=== PATIENT | male | born 1970 | race Caucasian/White ===

== ENCOUNTER 2024-01-06 13:18 | Outpatient (REF) | payer OTHER, MEDICAID, SELFPAY | END 2024-01-06 13:19 | disposition home or self-care (01) | LOC: HO.LNP 13:18 | PROVIDERS: Visit Provider Otolaryngology | DX: H92.10 Otorrhea, unspecified ear (principal) | CPT/HCPCS: 87070; 87077; 87102; 87106; 87107; 87205 ==